=== PATIENT | female | born 1935 | race Caucasian/White ===

== ENCOUNTER → 2016-08-08 | Outpatient (CLI) | payer MEDICARE ==
[~2016-08-08] MED LIST: ALEVE220 MG; ALTACE10 M1; CALCIUM 500500 M1; CALCIUM WITH VI1 TAB PO; MULTI VITAMINS1 TAB PO; NATURE'S BLE1000 MCG; RAMIPRIL 10MG C10 MG; VESICARE5 MG PO; ZOVIRAX51 TP
--- NOTE | 2016-08-08 12:24 | RADIOLOGY REPORT PS360 ---
EXAM: CERVICAL SPINE 4 OR 5 VIEWS HISTORY: NECK PAIN ORDERING PHYSICIAN: Julius Abraham MD PATIENT AGE: 80 years COMPARISON: None FINDINGS: Straightening of cervical lordosis. 2 mm anterolisthesis of C3. Moderate degenerative disc disease C3 C4 C4 C5 C5 C6 and C6-C7 with anterior osteophytes at C5-C6 and C6-C7. Foramina appear patent. Facet arthritic changes are present from C3 to C7. No lytic or blastic change. No fracture or dislocation. 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
== END ==
LOC: RAD 10:43
DX: M54.2 Cervicalgia (principal)

== ENCOUNTER → 2017-04-16 | Outpatient (CLI) | payer MEDICARE | LOC: RT 10:38 | DX: R07.9 Chest pain, unspecified (principal) ==